=== PATIENT | female | born 1965 | race Caucasian/White ===

== ENCOUNTER 2023-03-01 01:38 | Observation (INO) | payer OTHER ==
[2023-03-01 01:48] VITALS: BMI 23.2
[2023-03-01 02:55] LABS: BASO % 0.4 % (0-2.0); EOS % 0.9 % (0-4.5); HEMATOCRIT 39.5 % (32.4-45.2); HEMOGLOBIN 13.5 GM/dL (10.7-15.3); LYMPH % 29.5 % (8-40); MCH 28.3 pg (25.7-33.7); MCHC 34.3 g/dl (32.0-36.0); MEAN CELL VOLUME 82.6 fl (80-96); MEAN PLT VOLUME 9.8 fl (7.5-11.1); MONO % 7.6 % (3.8-10.2); NEUT % 61.6 % (42.8-82.8); PLATELET COUNT 262 10^3/uL (134-434); RBC 4.79 M/mm3 (3.60-5.2); RDW 14.4 % (11.6-15.6); WHITE BLOOD COUNT 8.7 K/mm3 (4.0-10.0)
[2023-03-01 03:35] LABS: POTASSIUM 4.1 mmol/L (3.5-5.1)
[2023-03-01 03:37] LABS: CALCIUM 9.8 mg/dL (8.5-10.1)
[2023-03-01 03:38] LABS: ALBUMIN 3.3 g/dl (3.4-5.0); BLOOD UREA NITROGEN 17.4 mg/dL (7-18)
[2023-03-01 03:41] LABS: CREATININE 0.7 mg/dL (0.55-1.3)
[2023-03-01 03:42] LABS: BILIRUBIN,TOTAL 0.5 mg/dL (0.2-1)
[2023-03-01 03:43] LABS: TOT PROT 6.8 g/dl (6.4-8.2)
[2023-03-01] MEDS ORDERED: ACETAMINOPHEN 1000 MG/100 ML BAG IVPB ONE (04:15)
[2023-03-01] MEDS ORDERED: ACETAMINOPHEN INJECTION 100 ML IVPB ONE (04:16)
[2023-03-01] MEDS ORDERED: ASPIRIN 81 MG CHEWABLE TABLETS PO ONE (04:56)
[2023-03-01] MEDS ORDERED: ASPIRIN 81 MG CHEWABLE TABLETS ONE ×2 (04:59→10:00)
[2023-03-01] MEDS ORDERED: KETOROLAC TROMETHAMINE 15 MG/ML VIAL IVPUSH PRN (07:45)
[2023-03-01] MEDS ORDERED: ACETAMINOPHEN 325 MG TABLET (FP) PO PRN (07:45)
[2023-03-01] MEDS ORDERED: amLODIPine BESYLATE 10 MG TABLET (FP) ONE (09:59)
[2023-03-01] MEDS ORDERED: LISINOPRIL 20 MG TABLET ONE (09:59)
[2023-03-01 10:02] VITALS: RESP 18
[2023-03-01] MEDS: ASPIRIN 81 MG CHEWABLE TABLETS PO SCH (10:02)
[2023-03-01] MEDS: LISINOPRIL 20 MG TABLET PO SCH (10:02)
[2023-03-01] MEDS: amLODIPine BESYLATE 10 MG TABLET (FP) PO SCH (10:02)
[2023-03-01] MEDS: metFORMIN HCL 500 MG TABLET (FP) PO SCH (17:49)
[2023-03-01] MEDS ORDERED: ATORVASTATIN CA 40 MG TABLET (FP) PO SCH (22:00)
[2023-03-02] MEDS: metFORMIN HCL 500 MG TABLET (FP) PO SCH ×2 (05:59→17:29)
[2023-03-02 07:18] LABS: POTASSIUM 4.6 mmol/L (3.5-5.1)
[2023-03-02 07:20] LABS: BASO % 0.5 % (0-2.0); EOS % 1.4 % (0-4.5); HEMATOCRIT 38.6 % (32.4-45.2); HEMOGLOBIN 13.2 GM/dL (10.7-15.3); LYMPH % 37.4 % (8-40); MCH 28.4 pg (25.7-33.7); MCHC 34.1 g/dl (32.0-36.0); MEAN CELL VOLUME 83.4 fl (80-96); MEAN PLT VOLUME 10.4 fl (7.5-11.1); MONO % 7.7 % (3.8-10.2); PLATELET COUNT 248 10^3/uL (134-434); RBC 4.63 M/mm3 (3.60-5.2); WHITE BLOOD COUNT 8.1 K/mm3 (4.0-10.0)
[2023-03-02 07:23] LABS: CALCIUM 9.2 mg/dL (8.5-10.1)
[2023-03-02 07:24] LABS: BLOOD UREA NITROGEN 14.9 mg/dL (7-18); MAGNESIUM 1.3 mg/dL (1.8-2.4)
[2023-03-02 07:27] LABS: CREATININE 0.5 mg/dL (0.55-1.3); PHOSPHOROUS 2.5 mg/dL (2.5-4.9)
[2023-03-02 07:28] LABS: TOT PROT 6.2 g/dl (6.4-8.2)
[2023-03-02 07:32] LABS: INR 1.13 (0.83-1.09); PROTHROMBIN TIME (PATIENT) 13.1 SEC (9.7-13.0)
[2023-03-02 07:35] LABS: ACTIVATED PTT 28.4 SECONDS (25.2-36.5)
[2023-03-02] MEDS: LISINOPRIL 20 MG TABLET PO SCH (09:15)
[2023-03-02] MEDS: ASPIRIN 81 MG CHEWABLE TABLETS PO SCH (09:15)
[2023-03-02] MEDS: amLODIPine BESYLATE 10 MG TABLET (FP) PO SCH (09:16)
[2023-03-02] MEDS: INSULIN SLIDING SCALE (NOVOLOG) 1 VIAL SQ SCH ×2 (11:53→17:29)
[2023-03-02] MEDS ORDERED: GABAPENTIN 100 MG CAPSULE PO SCH (14:00)
[2023-03-02 18:08] VITALS: BP 110/73; PULSE 77; TEMP 98.1
== END 2023-03-02 18:40 | disposition home or self-care (01) ==
LOC: JER 01:38 → JERBED 06:09 → J4S 12:26
PROVIDERS: ADMIT Internal Medicine; ATTEND Internal Medicine
PROC: 3E033NZ Introduction of Analgesics, Hypnotics, Sedatives into Peripheral Vein, Percutaneous Approach (ICD-10-PCS; principal; 2023-03-01)
PROC: 3E0333Z Introduction of Anti-inflammatory into Peripheral Vein, Percutaneous Approach (ICD-10-PCS; 2023-03-01)
PROC: 3E013VG Introduction of Insulin into Subcutaneous Tissue, Percutaneous Approach (ICD-10-PCS; 2023-03-01)
DX: R07.89 Other chest pain (principal); M79.601 Pain in right arm; I10 Essential (primary) hypertension; E11.9 Type 2 diabetes mellitus without complications; E78.5 Hyperlipidemia, unspecified; Z79.4 Long term (current) use of insulin; Z79.84 Long term (current) use of oral hypoglycemic drugs
CPT/HCPCS: 0241U-QW; 36415; 70450-TC; 71045-TC-FY; 72125-TC; 73030-TC-RT-FY; 80053; 82962; 83036; 83735; 84100; 84484; 85025; 85379; 85610; 85730; 93005; 93010; 93880-TC; 96372; 96374; 96375; 97116-GP; 97162-GP; 99285-25; G0378